=== PATIENT | male | born 1935 | race Caucasian/White ===

== ENCOUNTER 2016-12-19 21:08 | Emergency (ER) | payer MEDICARE, OTHER | END 2016-12-20 00:25 | disposition home or self-care (01) | LOC: ER1 21:08 | DX: S40.861A Insect bite (nonvenomous) of right upper arm, initial encounter (principal); L03.111 Cellulitis of right axilla; Z91.038 Other insect allergy status; Z88.2 Allergy status to sulfonamides; Z88.8 Allergy status to other drugs, medicaments and biological substances; Z79.82 Long term (current) use of aspirin; Z79.899 Other long term (current) drug therapy; W57.XXXA Bitten or stung by nonvenomous insect and other nonvenomous arthropods, initial encounter | CPT/HCPCS: 99282 ==